=== PATIENT | male | born 1965 ===

== ENCOUNTER 2023-04-22 12:30 | Outpatient (REF) | payer OTHER, SELFPAY ==
[2023-04-22 13:02] LABS: INR 1.44
== END 2023-04-22 12:31 | disposition home or self-care (01) ==
LOC: LAB 12:30
PROVIDERS: Visit Provider Internal Medicine
DX: I25.10 Atherosclerotic heart disease of native coronary artery without angina pectoris (principal); Z95.1 Presence of aortocoronary bypass graft; N40.0 Benign prostatic hyperplasia without lower urinary tract symptoms; I20.9 Angina pectoris, unspecified
CPT/HCPCS: 36415; 85610